=== PATIENT | female | born 1990 | race African-American/Black ===

== ENCOUNTER 2021-08-07 22:07 | Emergency (ER) | payer SELFPAY ==
[~2021-08-07] VITALS: Ht 172.7 cm; Wt 88.5 kg
[2021-08-07 22:21] VITALS: BP_SYST 145
--- NOTE | 2021-08-07 22:31 | NUR ---
Placed in room 01 . Placed on quality assurance monitor chassis, blood pressure machine and pulse oximeter. To gown for exam. Side rails up. Report given to JAYLA NULL
--- NOTE | 2021-08-07 22:32 | NUR ---
PATIENT BROUGHT IN AMBULATORY COMPLAINING OF LEFT SIDED MIGRAINE WORSENING X 1 WEEK WITH LIGHT SENSITIVITY. DENIES ANY NAUSEA OR VOMITING. HX OF GLAUCOMA, RA, UVEITIS. PATIENT REPORTS TAKING TYENOL AND IBUPROFEN WITH NO RELIEF. PAIN 7/10
--- NOTE | 2021-08-07 22:44 | NUR ---
ER Dr. GATES at bedside examining patient.
[2021-08-07] MEDS ORDERED: KETOROLAC TROMETHAMINE 60 MG/2 ML VIAL IM ONE ×2 (23:15→23:18)
[2021-08-07 23:39] VITALS: BP_SYST 126
--- NOTE | 2021-08-07 23:39 | NUR ---
Patient given written and verbal discharge instructions and verbalizes understanding. ER MD discussed with patient the results and treatment provided. Patient in stable condition. ID arm band removed. Rx of COMBIGEN given. Patient educated on pain management and to follow up with PMD. Pain Scale 0/10 Opportunity for questions provided and answered. Medication side effect fact sheet provided.
== END 2021-08-07 23:39 | disposition home or self-care (01) ==
LOC: SED 22:07
DX: G43.909 Migraine, unspecified, not intractable, without status migrainosus (principal)
CPT/HCPCS: 81025; 96372; 99283; J1885

== ENCOUNTER 2023-02-24 10:21 | Emergency (ER) | payer BC ==
[~2023-02-24] VITALS: Ht 172.7 cm; Wt 99.8 kg
[2023-02-24 10:25] VITALS: BP_SYST 158
--- NOTE | 2023-02-24 10:25 | NUR ---
Pt brought by self, A&appropiate to age , pt presents to ER with intermittent chest pain x 1 week, VSS, skin pink and warm, cap refill <3, will cont to monitor.
--- NOTE | 2023-02-24 10:51 | NUR ---
Dr Munson evaluating patient at bedside
--- NOTE | 2023-02-24 11:30 | NUR ---
Pt eloped from ER
== END 2023-02-24 11:30 | disposition left against medical advice (07) ==
LOC: SED 10:21
DX: R07.9 Chest pain, unspecified (principal); Z79.899 Other long term (current) drug therapy
CPT/HCPCS: 99281

== ENCOUNTER 2024-09-03 08:46 | Emergency (ER) | payer BC ==
[~2024-09-03] VITALS: Ht 177.8 cm; Wt 77.1 kg
[2024-09-03 08:54] VITALS: BP_SYST 125; PULSE 85; RESP 18; TEMP 97.2; O2SAT 98
[2024-09-03] MEDS ORDERED: KETOROLAC TROMETHAMINE 30 MG VIAL IM ONE (09:45)
[2024-09-03 09:53] VITALS: BP_SYST 125; PULSE 85; RESP 18; TEMP 97.2; O2SAT 98
== END 2024-09-03 10:10 | disposition left against medical advice (07) ==
LOC: SED 08:46
DX: S80.12XA Contusion of left lower leg, initial encounter (principal); X58.XXXA Exposure to other specified factors, initial encounter; Y93.89 Activity, other specified; Y92.89 Other specified places as the place of occurrence of the external cause; Y99.8 Other external cause status
CPT/HCPCS: 99283